=== PATIENT | male | born 1990 | race Caucasian/White ===

== ENCOUNTER → 2019-02-10 13:48 | Outpatient (CLI) | payer BC, SELFPAY ==
[2019-02-10 13:36] VITALS: BMI 22.5
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
== END ==
PROVIDERS: Referring Provider Physician Assistant; Visit Provider Physician Assistant
DX: S49.91XA Unspecified injury of right shoulder and upper arm, initial encounter (principal); V89.2XXA Person injured in unspecified motor-vehicle accident, traffic, initial encounter; T14.90XA Injury, unspecified, initial encounter
CPT/HCPCS: 72050; 72072; 73030

== ENCOUNTER → 2019-02-24 15:48 | Outpatient (CLI) | payer BC, SELFPAY ==
[2019-02-10 13:36] VITALS: BMI 22.5
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
== END ==
LOC: CT 15:51
PROVIDERS: Referring Provider Physician Assistant; Visit Provider Physician Assistant
DX: S22.019A Unspecified fracture of first thoracic vertebra, initial encounter for closed fracture (principal); S22.029A Unspecified fracture of second thoracic vertebra, initial encounter for closed fracture
CPT/HCPCS: 72125; 72128

== ENCOUNTER → 2019-03-18 13:09 | Outpatient (CLI) | payer BC, SELFPAY ==
[2019-03-14 12:55] VITALS: BMI 22.5
--- NOTE | 2019-03-18 13:11 | MRI_ITS ---
STUDY: MRI RIGHT SHOULDER REASON FOR EXAM: Right shoulder pain, injury with acromioclavicular separation over a month ago. TECHNIQUE: Standardized fat and water weighted pulse sequences were obtained in all 3 orthogonal planes. COMPARISON: Radiographs 02/10/2019. FINDINGS: Normal supraspinatus tendon. Normal infraspinatus tendon. Normal subscapularis tendon. Normal teres minor tendon. Normal supraspinatus muscle. Normal infraspinatus muscle. Normal subscapularis muscle. Normal teres minor muscle. There is a minimal volume of fluid in the glenohumeral joint extending into the bicipital tendon sheath. Normal humeral head and visualized proximal humerus. Normal biceps labral complex. Normal intracapsular long biceps tendon. Normal labrum. Normal capsulo- ligamentous complex. There is disruption of the acromioclavicular joint capsule with mild extravasated fluid adjacent to the distal clavicle (T2 coronal images 12, 13). There is a mild sprains of the coracoclavicular ligaments (T2 coronal image 19). There is a Type II morphology (curved), with a neutral orientation. There is no subacromial-subdeltoid bursal fluid. Normal visualized coracohumeral and coracoacromial ligaments. Normal deltoid muscle. There is a low-grade strain of the distal trapezius muscle (T2 coronal image 13). MRI/Upper Ext Joint Only(Routine) IMPRESSION: Acromioclavicular separation with mild sprains of the coracoclavicular ligaments. Low-grade strain of the distal trapezius muscle. Electronically Signed: Balaji Ball MD at 14:28 EST Tel , Service support ,
== END ==
LOC: MRI 13:11
PROVIDERS: Referring Provider Physician Assistant; Visit Provider Physician Assistant
DX: M25.511 Pain in right shoulder (principal); S43.51XD Sprain of right acromioclavicular joint, subsequent encounter
CPT/HCPCS: 73221

== ENCOUNTER 2019-04-01 10:30 | Outpatient (RCR) | payer BC, SELFPAY ==
[2019-02-28 09:33] VITALS: BMI 22.5
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
--- NOTE | 2019-04-01 11:11 | HP.PTDCSUM ---
HP - PT D/C Summary It has been my pleasure to treat NOLAN BARAJAS under orders from PREMA Perry, for the diagnosis of RIGHT SHOULDER AC SEPARATION, BICEPS TENDONOPATHY,T1-T2 SPINONOUS FRACTURES for a total of 8 visit(s). Discharge Date: 04/01/19 Please see the following information for a summary of their discharge status. - Subjective Subjective: Patient reports seen DR willis to return work . MRI is -. .Stiffness in shoulder - Pain Right Shoulder Pain Intensity (Out of 10): 0 - Overall Improvement % Improvement: 70 - Objective Objective/Function: POSTURE: mild foward. PALAPTION: tender AC. AROM: shoulder AROM 150 degrees,140 degrees ,ER 90 degrees ,IR T12. MMT: RTC 4/5 ,4-/5 ,SCAPULAR STRENGTH 3/5 - Goals Goal 1:: Patient to be Inependant with HEP Goal Progress: Goal Met Goal 2:: Patient to decrease right shoulder pain by 50% or > to improve function and QOL. Goal Progress: Goal Met Goal 3:: Patient to increase shoulder AROM flexion/abduction symtrical right to left 155 degrees for function. Goal Progress: Goal Met Goal 4:: Patient to increase strength right shoulder 4/5 to improve function with ADL'S and RTW. Goal Progress: Goal Met Goal 5:: Patient improve quick dash score by 5 -10 points or > to improve QOL and function Goal Progress: Goal Met Goal 6:: Patient to RTW and ADLS' above 90 degrees without difficullty Goal Progress: Goal Met - Plan Plan: D/C OKAY TO RTW 1 WEEK - D/C Information Discharge Comments: HEP AND RTW 1 WK If there are questions or concerns regarding this patient's physical therapy, please feel free to call me at [phone]. Thank you for the referral of this patient. Sincerely, Chapo Moctezuma, PT, Cert MDT, OCS
== END 2019-04-01 19:00 | disposition home or self-care (01) ==
LOC: PT 10:30
PROVIDERS: Referring Provider Physician Assistant; Visit Provider Physician Assistant
DX: S43.101D Unspecified dislocation of right acromioclavicular joint, subsequent encounter (principal); M25.811 Other specified joint disorders, right shoulder; M75.21 Bicipital tendinitis, right shoulder; S22.019D Unspecified fracture of first thoracic vertebra, subsequent encounter for fracture with routine healing; S22.029D Unspecified fracture of second thoracic vertebra, subsequent encounter for fracture with routine healing
CPT/HCPCS: 97014; 97110; 97161; G0283

== ENCOUNTER 2022-03-03 17:59 | Emergency (ER) | payer SELFPAY ==
[2022-03-03 18:00] VITALS: BP 139/85; PULSE 70; RESP 16; TEMP 36.6; O2SAT 100; BMI 26.2
--- NOTE | 2022-03-03 18:58 | EKG12_ITS ---
Test Reason : cp Blood Pressure : / mmHG Vent. Rate : 065 BPM Atrial Rate : 065 BPM P-R Int : 164 ms QRS Dur : 096 ms QT Int : 404 ms P-R-T Axes : 020 052 048 degrees QTc Int : 420 ms Normal sinus rhythm Normal ECG Confirmed by BECCA SANCHEZ, DOTTIE ([id number]), medical editor [place] ([id number]) on 03/04/2022 9:48:03 AM Referred By: Tl Confirmed By:DOTTIE HUDSON MD
--- NOTE | 2022-03-03 18:59 | EX.ED.DYSGE1 ---
HPI History of Present Illness Chief Complaint: Chest Pain Detail of Chief Complaint: Near syncope followed by chest discomfort with shortness of breath Informant: patient Onset/Context/Timing Onset: Today and Hours (Prior to arrival) Context: Sudden Onset Timing: Intermittent (Duration 5 minutes) Quality: Documented HPI narrative Location: Documented HPI narrative Current Severity: Gone Maximum Severity: Moderate Worsened by: Nothing per patient Relieved by: Nothing Associated Symptoms Associated Symptoms: HPI narrative Narrative Narrative: Patient is a 31-year-old male who presents because of near syncope with change in vision, chest pain and shortness of breath. Patient was at work. He was standing. His legs became numb. This was followed by chest discomfort with shortness of breath. He reported feeling nauseous may be warm. He did not ask anyone if he appeared pale. His vision went black. He did not fall to the ground. This is happened in the past but not as pronounced or prolonged. He does smoke. He denies alcohol use for the past 5 months. Denies drug use. There are family members with CA in their 50s. He is uncertain whether early or late 50s. He denies history of VTE. Denies travel, surgery in the past 1 to 2 months. He denies leg pain, swelling or discoloration. He presently denies chest pain or shortness of breath. He is on no medication. He states after his near syncopal sewed he did have head pain. The head pain was global. There is no ringing of the ears or decreased hearing. He denies rhinorrhea, congestion, postnasal drainage sore throat. He denied cough. The chest discomfort was located in the center of his chest. And described as discomfort. There is no radiation. Prior similar symptoms: Yes Recent Illness/Hospitalization: No PFSH PFS Medical History Asthma Allergy/AdvReac Type Severity Reaction Status Date / Time No Known Allergies Allergy Verified 03/03/22 18:02 Family History (Updated 03/03/22 @ 19:[address] Gerard Coronel MD) Other CAD (coronary artery disease) Surgical History no surgical history Social History (Updated 03/03/22 @ 19:[address] Gerard Coronel MD) household members: none Smoking Status: Current every day smoker tobacco type: cigarettes alcohol intake: former substance use type: does not use ROS ROS ED Constitutional Constitutional ED: Denies chills, fever(s), subjective, sweats or weight loss Eyes Eyes: Reports blurry vision bilateral (And loss of vision transiently); Denies change in vision or diplopia ENT ENT ED: Denies ear pain, rhinorrhea or sore throat Cardiovascular Cardiovascular: Reports chest pain and palpitations; Denies orthopnea, paroxysmal nocturnal dyspnea or racing heartbeat Respiratory/Chest Respiratory/Chest: Reports dyspnea; Denies cough, dyspnea on exertion, orthopnea or paroxysmal nocturnal dyspnea Gastrointestinal Gastrointestinal: Denies abdominal pain, diarrhea, melena, nausea or vomiting Genitourinary Genitourinary ED: Denies dysuria, hematuria or urinary frequency Musculoskeletal Musculoskeletal: Denies arthralgias, back pain, myalgias or neck pain Integumentary Denies abscess, Abrasions or rash Neurologic Neurologic: Reports headache(s); Denies paresthesias or weakness Psychiatric Psychiatric: Reports anxiety; Denies depression Endocrine Endocrinology: Denies cold intolerance or heat intolerance Hematologic/Lymphatic Hematologic/Lymphatic: Reports systems reviewed and no addt'l complaints, except as documented EXAM Physical Exam Const Vital Signs: 03/03/22 18:00 03/03/22 18:16 Temperature 97.8 F Temperature Source Temporal Pulse Rate 70 Respiratory Rate 16 Respiratory Effort Normal Non-Labored Blood Pressure 139/85 H Blood Pressure Mean 103 Pulse Ox 100 Oxygen Delivery Method Room Air Positive well nourished and well developed General Appearance ED: well developed and NAD; Negative for cyanotic, diaphoretic or pallor HEENT Reports moist mucous membranes HEENT Narrative: Head is atraumatic and normocephalic. Ears normal. TMs normal. Nares patent. Uvula midline. Posterior pharynx normal. Eyes PERRL and EOMs intact bilaterally Eyes Narrative: Funduscopic exam is normal. Cup-to-disc ratio is normal. There is venous lesion noted bilaterally. There is no abnormality of the vessel General Eye ED: Negative for pale conjunctiva or scleral icterus Neck no lymphadenopathy, supple and no JVD Chest Wall inspection of chest normal and palpation of chest normal Resp normal respiratory effort and clear to auscultation bilaterally Cardio regular rate, regular rhythm, S1 normal heart sound, S2 normal heart sound and no murmurs GI normal to inspection, nondistended, normoactive bowel sounds, non-tender, non-distended and no masses; Negative for hepatosplenomegaly Palpation: soft Back/Spine no CVA tenderness Extremity normal to inspection Extremity Narrative: There is no asymmetry, swelling, discoloration, leg vein distention, palpable cords or tenderness along the distribution of the deep venous system. General Extremety ED: Yes tenderness; Negative for edema General Extremity: Negative for edema Neuro oriented x3, CN's II-XII intact bilaterally and no sensory deficits noted Sensorium / Orientation: alert Psych mental status grossly normal Skin no rashes or lesions noted, no wounds and skin turgor normal General Skin Exam: elasticity normal; Negative for jaundice or pallor MDM MDM MDM Narrative Medical decision making narrative: Patient's symptoms is due to vasovagal episode. Because there is a family history of coronary disease at young age and he is a smoker will obtain EKG to rule out cardiac ischemia and troponin level. Because he complains of shortness of breath chest x-ray was obtained to evaluate for any abnormality i.e. pneumonia, pneumothorax CHF etc. Suspect there is an anxiety component to it since he does admit that he is anxious and concerned. Since work-up is negative suspect patient had vasovagal near syncopal sewed. Will discharge home with appropriate home-going instructions. Was informed of the results. Lab Data Attestation: I reviewed the patient's lab results. Lab results narrative: Troponin is normal. Labs: Laboratory Results - last 24 hr 03/03/22 19:25 Troponin I High Sens 6 Radiography Chest X-Ray - ED: 2 View and Read by ED Physician (2 view chest x-ray dependently reviewed and interpreted by me as negative. Cardiac silhouette size normal. Lung parenchyma normal. Perihilar region normal. [place] structures are normal.) Diagnostic Testing: Clinical Impression(s) from Imaging Studies Chest X-Ray 03/03/22 19:30 IMPRESSION: No radiographic evidence of acute cardiopulmonary disease. Electronically Signed: Sumit Mobley MD at 19:52 EST , EKG Initial EKG: Attestation: I personally reviewed and interpreted this EKG as follows: Interpretation: Sinus Rhythm (The EKG is normal. Rate is 65. SC interval is under 6 4 ms. Cures duration 96 ms. QT duration 404 ms. Emmalena is normal.) Prior: No Prior Discharge Plan Triage Chief Complaint: Chest Pain ED Provider: Gerard Coronel Dx/Rx/DC Orders Clinical Impression: Vasovagal near syncope, Central chest pain, Acute dyspnea, Nausea Instructions: ED Chest Pain, Noncardiac, ED Near-Fainting- Vagal Reaction Primary Care Provider: Care Physician,No Primary Referrals: Antonio Joe MD [Med Staff - Active Staff] - 1-2 Weeks Care Physician,No Primary [Primary Care Provider] - Disposition Disposition: Home, Self Care
--- NOTE | 2022-03-03 19:30 | RAD_ITS ---
EXAM: XR CHEST, 2 VIEWS CLINICAL INDICATION: Chest discomfort and shortness of breath TECHNIQUE: Frontal and lateral views of the chest. This report was created using [employer] report generation technology. COMPARISON: None. FINDINGS: LUNGS AND PLEURAL SPACES: Unremarkable. No consolidation or edema. No pneumothorax. No effusion. HEART: Unremarkable. Cardiac silhouette not enlarged. MEDIASTINUM: Central airways and mediastinal contour are unremarkable. BONES/JOINTS: Unremarkable. SOFT TISSUES: Unremarkable. RAD/Chest PA and Lateral IMPRESSION: No radiographic evidence of acute cardiopulmonary disease. Electronically Signed: Sumit Mobley MD at 19:52 EST ,
[2022-03-03 19:52] LABS: Troponin-I HS 6 pg/mL (3.0-78.0)
[2022-03-03 20:11] VITALS: BP 110/73; PULSE 65; RESP 16; O2SAT 97
== END 2022-03-03 20:16 | disposition home or self-care (01) ==
PROVIDERS: Emergency Provider Emergency Medicine; Visit Provider Emergency Medicine
DX: R55 Syncope and collapse (principal); R07.89 Other chest pain; R11.0 Nausea; R06.00 Dyspnea, unspecified; F17.210 Nicotine dependence, cigarettes, uncomplicated
CPT/HCPCS: 71046; 84484; 93005; 99284; A4216

== ENCOUNTER 2023-05-08 15:19 | Emergency (ER) | payer SELFPAY ==
[2023-05-08 15:21] VITALS: BP 127/74; PULSE 71; RESP 18; TEMP 36.5; O2SAT 100; BMI 24.9
--- NOTE | 2023-05-08 15:47 | ED.VIS.BACK ---
HPI History of Present Illness Chief Complaint: Back Informant: patient Narrative Narrative: Patient complaining of left thoracic back pain for the past 3 days. Came on gradually. States initially it started when he was driving. It was in the right low back. He states this commonly happens when he has been sitting and driving for an extended period as it did that day. He got out of his car and stretch for a while felt better he got back in his car and drove longer, and the pain started in the middle of his low back and has started radiating up toward the back of his head and has persisted for the past 3 days. He states the area that he usually gets pain in the right low back oftentimes will be swollen like a muscle knot, but he has never had pain in the area that he has a right now. The only other unusual symptom that he has had with this is an occasional sensation that there is liquid dripping and that it is cold in the area of his back where the pain is focused, mid thoracic. There has been no radiation of pain into the flanks or chest/abdomen, no other abdominal or chest pains, no numbness or tingling or weakness in his lower extremities or upper extremities, no recent injuries. He denies any bowel or bladder dysfunction or saddle anesthesia. He denies any fevers and denies being an IV drug abuser. [facility] Medical History Asthma Home Medications naproxen 500 mg tablet 500 mg PO BID PRN Pain #14 tabs 05/08/23 [Rx Last Taken Unknown] tramadol 50 mg tablet 50 mg PO Q6H PRN pain 3 days #10 tabs 05/08/23 [Rx Last Taken Unknown] Allergy/AdvReac Type Severity Reaction Status Date / Time No Known Allergies Allergy Verified 05/08/23 15:21 Family History (Updated 03/03/22 @ 19:[address] Gerard Coronel MD) Other CAD (coronary artery disease) Social History household members: none Smoking Status: Current every day smoker tobacco type: cigarettes alcohol intake: former substance use type: does not use ROS ROS ED Constitutional Constitutional ED: Denies chills or fever(s) Eyes Eyes: Denies change in vision or diplopia ENT ENT ED: Denies rhinorrhea or sore throat Cardiovascular Cardiovascular: Denies chest pain or palpitations Respiratory/Chest Respiratory/Chest: Denies cough or dyspnea Gastrointestinal Gastrointestinal: Denies abdominal pain, diarrhea, nausea or vomiting Genitourinary Genitourinary ED: Denies dysuria or hematuria Musculoskeletal Musculoskeletal: Reports back pain; Denies neck pain Integumentary Denies abscess or rash Neurologic Neurologic: Denies headache(s), paresthesias or weakness Psychiatric Psychiatric: Denies anxiety or suicidal thoughts EXAM Physical Exam Const Vital Signs: 05/08/23 15:21 Temperature 97.7 F L Temperature Source Temporal Pulse Rate 71 Respiratory Rate 18 Blood Pressure 127/74 H Blood Pressure Mean 91 Pulse Ox 100 Oxygen Delivery Method Room Air Positive well nourished and well developed General Appearance ED: well developed and NAD HEENT Reports moist mucous membranes normocephalic and atraumatic Eyes PERRL and EOMs intact bilaterally Neck full ROM and supple GI non-distended Palpation: soft Back/Spine no CVA tenderness Back/Spine Narrative: Patient tender mid thoracic spine around T5 and 6, as well as associated paraspinal areas which are also tender to her 3 levels above and below this. There is no cervical tenderness and no lumbar tenderness. His curvature appears normal when he leans forward. There are no deformities or rashes or skin discolorations, his back is essentially normal on inspection. General Back: other FROM Extremity normal to inspection General Extremety ED: Negative for edema, pulses abnormal or tenderness General Extremity: Negative for edema or pulses abnormal Neuro oriented x3, CN's II-XII intact bilaterally and no sensory deficits noted Sensorium / Orientation: awake and alert Motor Exam: strength 5/5 throughout Psych mental status grossly normal Skin no rashes or lesions noted and no wounds MDM MDM MDM Narrative Medical decision making narrative: Symptoms and exam are mostly consistent with musculoskeletal etiology such as a thoracic strain. Supportive care advised, patient was advised that since it is difficult to rest her back muscles during the day this may easily last 1 or 2 weeks. He does not have any neurologic symptoms to suggest radiculopathy. Since this is unusual I thought it was reasonable to screen him for bony abnormalities or disc space abnormalities in the area of pain with x-rays, is negative/normal, radiology was in agreement. Patient was given Toradol here as well as prescription for naproxen and tramadol to use as needed3 given appropriate discharge instructions for follow-up. View thoracic spine x-ray to my interpretation Radiography Diagnostic Testing: Clinical Impression(s) from Imaging Studies Thoracic Spine X-Ray 05/08/23 15:55 IMPRESSION: Normal x-ray examination of the thoracic spine. Electronically Signed: Job Rivera MD at 16:20 EDT , Discharge Plan Triage Chief Complaint: Back ED Provider: Bernardo Diehl Dx/Rx/DC Orders Clinical Impression: Acute thoracic myofascial strain Instructions: ED Back Sprain/Strain Prescriptions: New naproxen 500 mg tablet 500 mg PO BID PRN (Reason: Pain) Qty: 14 0RF tramadol 50 mg tablet 50 mg PO Q6H PRN (Reason: pain) 3 Days Qty: 10 0RF Primary Care Provider: Care Physician,No Primary Referrals: Doctor,Your [Non-Staff] - 10-14 Days if not better Disposition Disposition: Home, Self Care
--- NOTE | 2023-05-08 15:55 | RAD_ITS ---
STUDY: X-RAY - THORACIC SPINE REASON FOR EXAM: Male, 32 years old. pain TECHNIQUE: 3 view(s) of the thoracic spine were obtained. COMPARISON: None. FINDINGS: Normal kyphosis of the thoracic spine. There is no substantial scoliosis. Normal thoracic vertebrae and endplates. Normal disc space heights. The soft tissue structures are unremarkable. RAD/Thoracic Spine 2 Views IMPRESSION: Normal x-ray examination of the thoracic spine. Electronically Signed: Job Rivera MD at 16:20 EDT ,
[2023-05-08] MEDS: Ketorolac 60 MG/2 ML Vial IM (16:39)
[2023-05-08 17:17] VITALS: BP 125/73; PULSE 78; RESP 16; TEMP 36.2; O2SAT 99
== END 2023-05-08 17:19 | disposition home or self-care (01) ==
PROVIDERS: Emergency Provider Emergency Medicine; Visit Provider Emergency Medicine
DX: S29.019A Strain of muscle and tendon of unspecified wall of thorax, initial encounter (principal); F17.210 Nicotine dependence, cigarettes, uncomplicated; X58.XXXA Exposure to other specified factors, initial encounter; Y93.89 Activity, other specified; Y92.818 Other transport vehicle as the place of occurrence of the external cause
CPT/HCPCS: 72070; 96372; 99282

== ENCOUNTER 2023-09-09 18:03 | Emergency (ER) | payer SELFPAY ==
[2023-09-09 18:03] VITALS: BP 127/97; PULSE 88; RESP 18; TEMP 36.6; O2SAT 94; BMI 24.2
--- NOTE | 2023-09-09 18:45 | EX.ED.UPPERE ---
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 He denies any numbness or tingling. No pulsatile bleeding. His tetanus is not up-to-date it has been greater than 10 years. He denies any other complaints. Chief Complaint: Laceration Informant: patient Occured/Mechanism Mechanism/Context: Yes injury Comment: Proximal right forearm laceration about 45 minutes ago. Onset/Context/Timing Onset: Today Context: Sudden Onset Timing: Continuous Quality of Pain: Sharp Current Severity: Mild Maximum Severity: Mild Associated Symptoms Associated Symptoms: Negative for Parasthesia, Weakness or Loss of Funtion Narrative Narrative: 33-year-old male laceration right forearm accidentally while washing dishes. Tetanus Immunization: >10 years Prior similar symptoms: No Recent Illness/Hospitalization: No PFSH PFSH Medical History Anxiety Asthma Home Medications ?Medication ?Instructions ?Recorded ?Last Taken ?Type naproxen 500 mg tablet 500 mg PO BID PRN Pain #14 tabs 05/08/23 Unknown Rx tramadol 50 mg tablet 50 mg PO Q6H PRN pain 3 days #10 05/08/23 Unknown Rx tabs Allergy/AdvReac Type Severity Reaction Status Date / Time No Known Allergies Allergy Verified 09/09/23 18:05 Family History Other CAD (coronary artery disease) Family History no significant family his Surgical History no surgical history Social History household members: none Smoking Status: Current every day smoker tobacco type: cigarettes alcohol intake: former substance use type: does not use ROS ROS ED ROS Narrative Denies recent illness. Constitutional Constitutional ED: Denies fever(s) Eyes Eyes: Denies blurry vision ENT ENT ED: Denies ear pain Cardiovascular Cardiovascular: Denies chest pain Respiratory/Chest Respiratory/Chest: Denies cough Gastrointestinal Gastrointestinal: Denies abdominal pain Genitourinary Genitourinary ED: Denies dysuria Musculoskeletal Musculoskeletal: Denies back pain Integumentary Denies abscess Neurologic Neurologic: Denies headache(s) Psychiatric Psychiatric: Denies anxiety Endocrine Endocrinology: Denies cold intolerance Hematologic/Lymphatic Hematologic/Lymphatic: Denies easy bleeding or easy bruising Allergic/Immunologic Allergic/Immunologic ED: Denies mouth swelling, tongue swelling or urticaria EXAM Physical Exam Narrative Exam Narrative: Healthy 33-year-old male. Vital signs stable afebrile. H EENT exam unremarkable. Neck nontender no lymphadenopathy. Lungs clear to auscultation bilaterally. Heart regular rhythm no murmur. Chest wall and ribs nontender. Abdomen soft nontender. Moving all 4 extremities. Specifically right forearm palmar side proximal third on the ulnar side he has about a 1 and half to 2 inch laceration involving the skin and subcu tissue. Minimal oozing of blood. No pulsatile bleeding. No foreign body. No infection. 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 There is no expanding hematoma. Const Vital Signs: 09/09/23 18:03 Temperature 98 F Temperature Source Temporal Pulse Rate 88 Respiratory Rate 18 Blood Pressure 127/97 H Blood Pressure Mean 107 Pulse Ox 94 Oxygen Delivery Method Room Air Positive well nourished and well developed; Negative for obese, cachectic, contractures or unkempt General Appearance ED: well developed and NAD; Negative for unkempt, cachectic, contractures, cyanotic or diaphoretic Nutritional Appearance: Negative for cachectic or obese HEENT normocephalic and atraumatic Eyes PERRL and EOMs intact bilaterally Neck full ROM Chest Wall inspection of chest normal and palpation of chest normal Resp normal respiratory effort and clear to auscultation bilaterally Cardio regular rate, regular rhythm, S1 normal heart sound, S2 normal heart sound and no murmurs GI non-tender, non-distended and no masses Extremity normal to inspection and full ROM Extremity Narrative: Except 1-1/2 to 2 inch laceration right proximal forearm distal to the elbow. Ulnar side. Minimal bleeding. No pulsatile bleeding. No expanding hematoma. No foreign body or infection. Right hand is neurovascularly intact with cap refill. Touch sensation. Motor strength. And range of motion. Neuro oriented x3, CN's II-XII intact bilaterally, moves all extremities, no focal motor deficits and no sensory deficits noted Sensorium / Orientation: alert, oriented to person, oriented to place and oriented to time; Negative for orientation impaired Motor Exam: strength 5/5 throughout Psych mental status grossly normal Appearance: Negative for unkempt Attitude: No agitated Mood & Affect: other; Negative for depressed, anxious or tearful Skin Lesions: no lesions Rashes: no rashes Trauma: laceration Image ED - Upper Extremity Diagram: 1. Right proximal forearm laceration palmar side ulnar side. 1 to 2 inches. No pulsatile bleeding. Minimal bleeding. No history hematoma. No infection or foreign body. MDM MDM MDM Narrative Medical decision making narrative: 33-year-old gentleman right forearm laceration needs repaired. Tetanus will be updated. No x-rays are needed. Area was cleaned with Shur-Clens. Washed with saline. Explored. Irrigated. Local anesthetized with lidocaine. Closed using 5 simple interrupted 5-0 Ethilon sutures. Proper hemostasis wound closure obtained. He tolerated procedure well. He was instructed on wound care. And suture removal. Procedures Lacerations Right forearm laceration repair:: Length: 1.5 in Depth: Sub Q Shape: Linear Prep: Shure-Clens Laceration repair: Irrigated, Lidocaine, Local, Skin sutures and Wound explored Number of Sutures/Prosper: 5 Suture Information: Ethilon, Simple and 5-0 Discharge Plan Triage Chief Complaint: Laceration ED Provider: Feliberto Tate Dx/Rx/DC Orders Clinical Impression: Laceration of right forearm Instructions: ED Laceration, All Closures Prescriptions: No Action naproxen 500 mg tablet 500 mg PO BID PRN (Reason: Pain) Qty: 14 0RF tramadol 50 mg tablet 50 mg PO Q6H PRN (Reason: pain) 3 Days Qty: 10 0RF Primary Care Provider: Care Physician,No Primary Referrals: Ricardo Abel MD [Med Staff - Shot Examiner] - 10-14 Days suture removal Care Physician,No Primary [Primary Care Provider] - Activity Restrictions/Additional Instructions: Tylenol and/or Motrin for pain. Ice the area. Keep it dry and clean. You get a shower just make sure is rinsed off well and dried off thoroughly. Be careful around the laceration you can tear out the stitches. Clean daily with soap and water or peroxide and water. Apply antibiotic ointment daily. Watch for any signs of infection such as pus, red streaks, fever or swelling is seen return. Stitches out no less than 10 in 14 days. Print Language: Bulgarian Disposition Disposition: Home, Self Care
[2023-09-09] MEDS: Diphth,Pertuss(Acell),Tet Vac 0.5 ML Vial IM (18:46)
[2023-09-09] MEDS: Lidocaine 1% (20 ml mdv) 20 ML Vial 10 ML INFILT (18:47)
== END 2023-09-09 18:59 | disposition home or self-care (01) ==
LOC: ED 18:58
PROVIDERS: Emergency Provider Emergency Medicine; Visit Provider Emergency Medicine
DX: S51.811A Laceration without foreign body of right forearm, initial encounter (principal); W26.0XXA Contact with knife, initial encounter; Y93.G1 Activity, food preparation and clean up; F17.210 Nicotine dependence, cigarettes, uncomplicated
CPT/HCPCS: 12002; 90715; 99283